=== PATIENT | female | born 1945 | race Caucasian/White ===

== ENCOUNTER 2017-09-08 14:37 | Emergency (ER) | payer OTHER, MEDICARE ==
[2017-09-08] MEDS ORDERED: fentaNYL 100 MCG/2 ML SDV IVPUSH STA ×2 (15:33→16:02)
--- NOTE | 2017-09-08 15:52 | EDM.PDOC ---
ED HPI GENERAL MEDICAL PROBLEM - General Chief Complaint: Upper Extremity Injury/Pain Stated Complaint: LEFT THUMB INJURY Time Seen by Provider: 09/08/17 15:17 Source of Information: Reports: Patient History Limitations: Reports: No Limitations - History of Present Illness INITIAL COMMENTS - FREE TEXT/NARRATIVE: 72 y/o F presents s/p fall. Tripped. Fell on outstretched L hand. Landed on her thumb area. Immediately had pain/deformity to the base of the thumb. Denies additional injury. Has mild L wrist pain. Pain is moderate, sharp. Unable to move the L thumb. Also has some tingling in the thumb. No bleeding. No additional complaint. Left Hand Pain Score (Numeric/FACES): 9 - Related Data Allergies Allergy/AdvReac Type Severity Reaction Status Date / Time No Known Allergies Allergy Verified 09/08/17 14:50 Past Medical History HEENT History: Reports: Impaired Vision Respiratory History: Reports: Other (See Below) Other Respiratory History: sarcoidosis SHREDDER TENDER History: Reports: Other SHREDDER TENDER History: x4 Musculoskeletal History: Reports: Arthritis Endocrine/Metabolic History: Reports: Hypothyroidism - Past Surgical History Respiratory Surgical History: Reports: Other (See Below) Other Respiratory Surgeries/Procedures: mediastynoscopy, bronchoscopy GI Surgical History: Reports: Colonoscopy Musculoskeletal Surgical History: Reports: Other (See Below) Other Musculoskeletal Surgeries/Procedures:: osteopenia Social & Family History - Family History Family Medical History: Noncontributory - Tobacco Use Smoking Status *Q: Never Smoker - Caffeine Use Caffeine Use: Reports: Coffee - Recreational Drug Use Recreational Drug Use: Yes Review of Systems - Review of Systems Review Of Systems: See Below Constitutional: Reports: No Symptoms Mouth/Throat: Reports: No Symptoms Respiratory: Reports: No Symptoms Cardiovascular: Reports: No Symptoms GI/Abdominal: Reports: No Symptoms Musculoskeletal: Reports: Hand Pain Skin: Denies: Wound Neurological: Reports: Paresthesia ED EXAM, GENERAL - Physical Exam Exam: See Below Exam Limited By: No Limitations General Appearance: Alert, WD/WN, No Apparent Distress Eye Exam: Bilateral Eye: Normal Inspection Nose: Normal Inspection Throat/Mouth: Normal Voice Head: Atraumatic, Normocephalic Neck: Normal Inspection Respiratory/Chest: No Respiratory Distress Cardiovascular: Normal Peripheral Pulses Extremities: Other (L Hand: L thumb is is held in extreme flexion at the base, to about 90 degrees. Unable to extend the thumb. Distal sensation/perfusion is intact. She has mild swelling and TTP to MCP joint area of the index finger, no deformity, skin intact, distal m/s/p intact. Remaining hand exam is nontender/ no deformity. No significant L wrist TTP, no deformity. ) ED TRAUMA EXTREMITY PROCEDURES - Joint Reduction Site: Other (L thumb ) Sedation: Other (fentanyl and versed ) Technique: Traction/Counter Traction Number of Attempts: 1 Post-Reduction Imaging: Completely Reduced Course - Vital Signs Last Recorded V/S: Last Vital Signs Temp 36.4 C 09/08/17 14:46 Pulse 89 09/08/17 14:46 Resp 20 09/08/17 14:46 BP 178/87 H 09/08/17 14:46 Pulse Ox 95 09/08/17 14:46 - Orders/Labs/Meds Meds: Medications Discontinued Medications Generic Name Dose Route Start Last Admin Trade Name Freq PRN Reason Stop Dose Admin Fentanyl 50 mcg 09/08/17 15:33 09/08/17 15:45 Sublimaze IVPUSH 09/08/17 15:34 50 mcg ONETIME STA Administration Fentanyl 25 mcg 09/08/17 16:02 09/08/17 16:00 Sublimaze IVPUSH 09/08/17 16:03 25 mcg ONETIME STA Administration Midazolam HCl Confirm 09/08/17 15:59 09/08/17 16:03 Versed 1 Mg/Ml Administered 09/08/17 16:00 Not Given Dose 2 mg .ROUTE .STK-MED ONE Midazolam HCl 2 mg 09/08/17 16:03 09/08/17 16:03 Versed 1 Mg/Ml IVPUSH 09/08/17 16:04 2 mg ONETIME STA Administration - Re-Assessments/Exams Free Text/Narrative Re-Assessment/Exam: XR hand shows dislocation of thumb at the MCP joint. No apparent fracture. Patient was given fentanyl and 2mg versed. Thumb successfully reduced. Repeat xr shows normalized alignment of the thumb. No fracture. She does have some weakness with abduction. I think she may have a ligamentous injury. Splinted in thumb spica. She is from [place] and will follow up with an orthopedist there. Departure - Departure Time of Disposition: 17:15 Disposition: Home, Self-Care 01 Clinical Impression: Closed dislocation of thumb Qualifiers: Encounter type: initial encounter Laterality: left Qualified Code(s): S63.105A - Unspecified dislocation of left thumb, initial encounter Left thumb sprain Qualifiers: Encounter type: initial encounter Sprain of finger site: metacarpophalangeal joint Qualified Code(s): S63.642A - Sprain of metacarpophalangeal joint of left thumb, initial encounter - Discharge Information *PRESCRIPTION DRUG MONITORING PROGRAM REVIEWED*: Not Applicable *COPY OF PRESCRIPTION DRUG MONITORING REPORT IN PATIENT RAYMON: Not Applicable Instructions: Finger or Thumb Dislocation, [id number] Referrals: PCP,Not In Area [Primary Care Provider] - Forms: ED Department Discharge Additional Instructions: 1. Take ibuprofen and/or acetaminophen as needed for pain. 2. Follow up with the orthopedist of your choice in about a week to remove the splint and evaluate for any ligamentous injury. 3. Return to the ED as needed for any concerning symptoms, such as severe pain, numbness, or other concerns.
[2017-09-08] MEDS ORDERED: Midazolam 1 MG/ML 2 ML SDV ONE (15:59)
[2017-09-08] MEDS ORDERED: Midazolam 1 MG/ML 2 ML SDV IVPUSH STA (16:03)
--- NOTE | 2017-09-11 10:25 | CR ---
Left hand: Four views of the left hand were obtained. Comparison: Prior left hand study performed earlier on the same day (3:35 PM). Dislocated MCP joint of the thumb shows evidence of reduction. Minimal subluxation persists most likely due to ligamentous injury. Degenerative change is noted within the DIP and PIP joints as well as off the distal navicular bone and at the CMC joint of the thumb. No acute bony abnormality is identified. Impression: 1. Previous dislocation has been reduced. Mild subluxation persists within the CMC joint of the thumb. This subluxation likely relates to ligamentous injury. 2. Osteopenia and degenerative change. Diagnostic code #2
--- NOTE | 2017-09-11 10:25 | CR ---
Left hand: Four views of the left hand were obtained. Comparison: No prior study. Mild dislocation noted at the MCP joint of the thumb. Slight degenerative change scattered within the DIP and PIP joints. Bony structures are osteopenic. No other acute abnormality is seen. Mild degenerative change is noted at the CMC joint of the thumb as well as joint space narrowing off the distal navicular bone. Impression: 1. Dislocated MCP joint of the thumb. 2. Osteopenia and degenerative change. Diagnostic code #3
== END 2017-09-08 17:25 | disposition home or self-care (01) ==
LOC: JD.ED 14:37
DX: S63.115A Dislocation of metacarpophalangeal joint of left thumb, initial encounter (principal); S63.642A Sprain of metacarpophalangeal joint of left thumb, initial encounter; E03.9 Hypothyroidism, unspecified; W01.0XXA Fall on same level from slipping, tripping and stumbling without subsequent striking against object, initial encounter
CPT/HCPCS: 26700; 73130; 96374; 96375; 99284; J2250; J3010; 26770; 29125